=== PATIENT | female | born 1975 | race American Indian/Alaskan Native ===

== ENCOUNTER 2016-12-04 18:34 | Emergency (ER) | payer OTHER ==
[2016-12-04 19:22] LABS: Basophils % (Auto) 0.6 % (0.0-1.8); Eosinophils % (Auto) 2.5 % (0.0-4.3); Hematocrit 37.1 % (30.3-42.9); Mean Corpuscular HGB Conc 32 % (30-34); Mean Corpuscular Hemoglobin 29 pg (28-32); Mean Corpuscular Volume 91 fl (79-97); Platelet Count 228 K/mm3 (140-440); Red Cell Distribution Width 14.3 % (13.2-15.2); White Blood Count 6.2 K/mm3 (4.5-11.0)
[2016-12-04 19:34] LABS: Bilirubin,Urine NEG (Negative); Blood,Urine SM (Negative); Ketones,Urine NEG (Negative); Leukocyte Esterase,Urine TR (Negative); Mucus,Urine FEW /HPF; Nitrite,Urine NEG (Negative); Protein,Urine <15 mg/dL mg/dL (Negative); Urobilinogen,Urine < 2.0 mg/dL (<2.0)
[2016-12-04 19:37] LABS: Anion Gap 16 mmol/L; BUN/Creatinine Ratio 16.36; Blood Urea Nitrogen 18 mg/dL (7-17); Calcium 8.6 mg/dL (8.4-10.2); Carbon Dioxide 26 mmol/L (22-30); Chloride 102.7 mmol/L (98-107); Glucose 82 mg/dL (65-100); Potassium 4.5 mmol/L (3.6-5.0); Sodium 140 mmol/L (137-145)
--- NOTE | 2016-12-05 00:15 | Emergency Department Report ---
ED Abdominal Pain HPI - General Chief Complaint: Abdominal Pain Stated Complaint: ABD PAIN Time Seen by Provider: 12/04/16 23:46 Source: patient Mode of arrival: Ambulatory Limitations: No Limitations - History of Present Illness MD Complaint: abdominal pain -: Gradual Location: LLQ Radiation: none Migration to: no migration Severity: mild Severity scale (0 -10): 1 Quality: stabbing, sharp Consistency: intermittent, now resolved, colicky Improves With: nothing Worsens With: nothing Associated Symptoms: denies: nausea, vomiting, diarrhea, chills, constipation, dysuria, hematemesis, melena, hematuria, anorexia - Related Data Home Medications Medication Instructions Recorded Confirmed Last Taken Lisinopril [Zestril TAB] 04/26/14 04/26/14 04/25/14 Triamterene/Hydrochlorothiazid 04/26/14 04/26/14 04/25/14 [Triamterene-Hctz 50-25 mg Cap] Previous Rx's Medication Instructions Recorded Last Taken Type HYDROcodone/ACETAMINOPHEN [[place] 1 each PO Q8H #14 tablet 04/27/14 Unknown Rx 7.5-325 mg TAB] Ondansetron [Zofran Odt] 4 mg PO Q6H #14 tab.rapdis 04/27/14 Unknown Rx Cyclobenzaprine HCl [Flexeril 5 MG 5 mg PO TID #30 tab 02/16/15 Unknown Rx TAB] Ibuprofen [Motrin] 800 mg PO Q8HR #30 tablet 02/16/15 Unknown Rx traMADol [Ultram 50 MG tab] 50 mg PO Q6HR PRN #20 tablet 02/16/15 Unknown Rx HYDROcodone/APAP 5-325 [[place] 1 each PO BID #12 tablet 12/05/16 Unknown Rx 5/325] Allergies Allergy/AdvReac Type Severity Reaction Status Date / Time No Known Allergies Allergy Verified 12/04/16 18:56 ED Review of Systems ROS: Stated complaint: ABD PAIN Other details as noted in HPI Comment: All other systems reviewed and negative Gastrointestinal: abdominal pain ED Past Medical Hx - Past Medical History Hx Hypertension: Yes Additional medical history: abd hernia. OBESITY - Surgical History Hx Cholecystectomy: Yes (1999.) Additional Surgical History: tubal lig 2008; hernia rx 2008, 06/11, 01/09. gastric bypass 2011. - Social History Smoking Status: Never Smoker Substance Use Type: Alcohol, Prescribed - Medications Home Medications: Home Medications Medication Instructions Recorded Confirmed Last Taken Type Lisinopril [Zestril TAB] 04/26/14 04/26/14 04/25/14 History Triamterene/Hydrochlorothiazid 04/26/14 04/26/14 04/25/14 History [Triamterene-Hctz 50-25 mg Cap] HYDROcodone/ACETAMINOPHEN [[place] 1 each PO Q8H #14 tablet 04/27/14 Unknown Rx 7.5-325 mg TAB] Ondansetron [Zofran Odt] 4 mg PO Q6H #14 tab.rapdis 04/27/14 Unknown Rx Cyclobenzaprine HCl [Flexeril 5 MG 5 mg PO TID #30 tab 02/16/15 Unknown Rx TAB] Ibuprofen [Motrin] 800 mg PO Q8HR #30 tablet 02/16/15 Unknown Rx traMADol [Ultram 50 MG tab] 50 mg PO Q6HR PRN #20 tablet 02/16/15 Unknown Rx HYDROcodone/APAP 5-325 [[place] 1 each PO BID #12 tablet 12/05/16 Unknown Rx 5/325] ED Physical Exam - General Limitations: No Limitations General appearance: alert, in no apparent distress - Head Head exam: Present: atraumatic, normocephalic - Eye Eye exam: Present: normal appearance - ENT ENT exam: Present: mucous membranes moist - Neck Neck exam: Present: normal inspection - Respiratory Respiratory exam: Present: normal lung sounds bilaterally. Absent: respiratory distress - Cardiovascular Cardiovascular Exam: Present: regular rate, normal rhythm. Absent: systolic murmur, diastolic murmur, rubs, gallop - GI/Abdominal GI/Abdominal exam: Present: soft, normal bowel sounds, hernia (left reducible inguinal hernia). Absent: distended, tenderness, guarding, rebound - Extremities Exam Extremities exam: Present: normal inspection - Back Exam Back exam: Present: normal inspection - Neurological Exam Neurological exam: Present: alert, oriented X3 - Psychiatric Psychiatric exam: Present: normal affect, normal mood - Skin Skin exam: Present: warm, dry, intact, normal color. Absent: rash ED Course Vital Signs 12/04/16 12/04/16 12/04/16 19:00 22:15 23:41 Temperature 98.0 F 98.2 F Pulse Rate 73 87 68 Respiratory 19 20 17 Rate Blood Pressure 149/94 Blood Pressure 152/101 [Right] O2 Sat by Pulse 100 100 100 Oximetry 12/04/16 23:53 Temperature Pulse Rate Respiratory 16 Rate Blood Pressure Blood Pressure [Right] O2 Sat by Pulse Oximetry ED Medical Decision Making - Lab Data Result diagrams: 12/04/16 19:05 12/04/16 19:05 - Medical Decision Making patient with a known reducible left inguinal hernia , no abdominal pain at this time, will dc and follow up Critical care attestation.: If time is entered above; I have spent that time in minutes in the direct care of this critically ill patient, excluding procedure time. ED Disposition Clinical Impression: Abdominal pain Disposition: DC-01 TO HOME OR SELFCARE Is pt being admited?: No Does the pt Need Aspirin: No Condition: Good Instructions: Abdominal Pain (ED) Prescriptions: HYDROcodone/APAP 5-325 [[place] 5/325] 1 each PO BID #12 tablet Referrals: PRIMARY CARE, [Primary Care Provider] - 3-5 Days Forms: Work/School Release Form(ED) Time of Disposition: 00:14
[2016-12-05 00:39] VITALS: BP 140/83
== END 2016-12-05 00:39 | disposition home or self-care (01) ==
LOC: ED 18:34
DX: R10.9 Unspecified abdominal pain (principal)
CPT/HCPCS: 36415; 80048; 81001; 84703; 85025; 99283